=== PATIENT | female | born 1995 | race Caucasian/White ===

== ENCOUNTER 2023-07-29 11:27 | Observation (INO) | payer MEDICAID | END 2023-07-29 14:09 | disposition home or self-care (01) | LOC: LDRP 11:27 | PROVIDERS: ADMIT Obstetrics & Gynecology; ATTEND Obstetrics & Gynecology | DX: O26.893 Other specified pregnancy related conditions, third trimester (principal); R10.2 Pelvic and perineal pain; Z88.0 Allergy status to penicillin; Z3A.22 22 weeks gestation of pregnancy | CPT/HCPCS: 59025; 76805; 81002; 94760; G0378 ==

== ENCOUNTER 2023-10-08 11:30 | Observation (INO) | payer MEDICAID ==
[2023-10-08] MEDS ORDERED: PREN1TAB71 OR (11:46)
== END 2023-10-08 14:10 | disposition home or self-care (01) ==
LOC: LDRP 11:30 → UNDOADMOB 11:30 → LDRP 11:42
PROVIDERS: ADMIT Obstetrics & Gynecology; ATTEND Obstetrics & Gynecology
DX: O24.419 Gestational diabetes mellitus in pregnancy, unspecified control (principal); Z3A.32 32 weeks gestation of pregnancy; Z79.84 Long term (current) use of oral hypoglycemic drugs; Z88.0 Allergy status to penicillin
CPT/HCPCS: 59025; 76818; 81002; 82962; 94760; G0378

== ENCOUNTER 2023-10-11 07:25 | Observation (INO) | payer MEDICAID ==
[~2023-10-11 07:25] MED LIST: PREN1TAB71 OR
== END 2023-10-11 10:40 | disposition home or self-care (01) ==
LOC: UNDOADMOB 09:00 → LDRP 09:00
PROVIDERS: ADMIT Obstetrics & Gynecology; ATTEND Obstetrics & Gynecology
DX: O24.419 Gestational diabetes mellitus in pregnancy, unspecified control (principal); O26.893 Other specified pregnancy related conditions, third trimester; R10.30 Lower abdominal pain, unspecified; Z3A.33 33 weeks gestation of pregnancy; Z88.0 Allergy status to penicillin
CPT/HCPCS: 59025; 76818; 81002; 82948; 94760; G0378

== ENCOUNTER 2023-10-15 09:00 | Observation (INO) | payer MEDICAID | END 2023-10-15 10:34 | disposition home or self-care (01) | LOC: UNDOADMOB 09:00 → LDRP 09:00 → UNDODISOB 10:34 | PROVIDERS: ADMIT Obstetrics & Gynecology; ATTEND Obstetrics & Gynecology | DX: O24.419 Gestational diabetes mellitus in pregnancy, unspecified control (principal); O99.283 Endocrine, nutritional and metabolic diseases complicating pregnancy, third trimester; E16.2 Hypoglycemia, unspecified; Z3A.33 33 weeks gestation of pregnancy; Z88.0 Allergy status to penicillin; Z79.84 Long term (current) use of oral hypoglycemic drugs | CPT/HCPCS: 59025; 76818; 81002; 82948; 82962; 94760; G0378 ==

== ENCOUNTER 2023-10-17 14:09 | Observation (INO) | payer MEDICAID ==
[2023-10-17] MEDS ORDERED: METF-929 PO (16:10)
== END 2023-10-17 16:22 | disposition home or self-care (01) ==
LOC: LDRP 14:09 → UNDOADMOB 14:09 → LDRP 14:24
PROVIDERS: ADMIT Obstetrics & Gynecology; ATTEND Obstetrics & Gynecology
DX: O24.419 Gestational diabetes mellitus in pregnancy, unspecified control (principal); O26.893 Other specified pregnancy related conditions, third trimester; R10.30 Lower abdominal pain, unspecified; R10.2 Pelvic and perineal pain; Z3A.34 34 weeks gestation of pregnancy; Z88.0 Allergy status to penicillin
CPT/HCPCS: 59025; 76818; 81002; 82962; G0378

== ENCOUNTER 2023-10-22 09:11 | Observation (INO) | payer MEDICAID ==
[~2023-10-22 09:11] MED LIST changes: +METF-929 PO
[2023-10-22] MEDS ORDERED: METF500S3 PO (10:33)
[2023-10-22] MEDS ORDERED: GLYB2.5T8 PO (10:33)
== END 2023-10-22 10:48 | disposition home or self-care (01) ==
LOC: UNDOADMOB 09:11 → LDRP 09:11
PROVIDERS: ADMIT Obstetrics & Gynecology; ATTEND Obstetrics & Gynecology
DX: O24.419 Gestational diabetes mellitus in pregnancy, unspecified control (principal); Z3A.34 34 weeks gestation of pregnancy; Z79.899 Other long term (current) drug therapy; Z98.890 Other specified postprocedural states; Z88.0 Allergy status to penicillin
CPT/HCPCS: 59025; 76818; 81002; 82948; G0378

== ENCOUNTER 2023-10-25 11:00 | Observation (INO) | payer MEDICAID ==
[~2023-10-25 11:00] MED LIST changes: +GLYB2.5T8 PO; -METF-929 PO; +METF500S3 PO
== END 2023-10-25 12:41 | disposition home or self-care (01) ==
LOC: UNDOADMOB 11:00 → LDRP 11:00
PROVIDERS: ADMIT Obstetrics & Gynecology; ATTEND Obstetrics & Gynecology
DX: O24.419 Gestational diabetes mellitus in pregnancy, unspecified control (principal); Z3A.35 35 weeks gestation of pregnancy; Z88.0 Allergy status to penicillin
CPT/HCPCS: 59025; 76818; 81002; 82948; 82962; 94760; G0378

== ENCOUNTER 2023-10-29 11:09 | Observation (INO) | payer MEDICAID | END 2023-10-29 12:50 | disposition home or self-care (01) | LOC: LDRP 11:09 → UNDOADMOB 11:09 → LDRP 11:12 | PROVIDERS: ADMIT Obstetrics & Gynecology; ATTEND Obstetrics & Gynecology | DX: O24.419 Gestational diabetes mellitus in pregnancy, unspecified control (principal); O26.893 Other specified pregnancy related conditions, third trimester; N89.8 Other specified noninflammatory disorders of vagina; Z3A.36 36 weeks gestation of pregnancy; Z88.0 Allergy status to penicillin | CPT/HCPCS: 59025; 76818; 81002; 82948; 82962; G0378 ==

== ENCOUNTER 2023-11-01 10:52 | Observation (INO) | payer MEDICAID | END 2023-11-01 12:34 | disposition home or self-care (01) | LOC: UNDOADMOB 10:52 → LDRP 10:52 | PROVIDERS: ADMIT Obstetrics & Gynecology; ATTEND Obstetrics & Gynecology | DX: O24.419 Gestational diabetes mellitus in pregnancy, unspecified control (principal); Z3A.36 36 weeks gestation of pregnancy | CPT/HCPCS: 59025; 76818; 81002; 82948; 82962; G0378 ==

== ENCOUNTER → 2023-11-01 | Outpatient (CLI) | payer MEDICAID ==
[2023-11-01 10:43] LABS: Basophils # (auto) 0 10 ^3/uL (0-0.2); Basophils % (auto) 0.2 % (0.0-2.0); Eosinophils # (auto) 0.1 10 ^3/uL (0-0.8); Hematocrit 39.9 % (36.0-46.0); Hemoglobin 13.5 g/dL (12.2-16.2); Lymphocytes # (auto) 1.7 10 ^3/uL (0.4-5.4); Lymphocytes % (auto) 16.3 % (10.0-50.0); Mean Corpuscular Hemoglobin 31.6 pg (28.0-32.0); Mean Corpuscular Hgb Conc. 33.7 g/dL (32.0-36.0); Mean Corpuscular Volume 93.7 fL (80.0-100.0); Monocytes # (auto) 0.8 10 ^3/uL (0-1.3); Monocytes % (auto) 7.6 % (0.0-12.0); Neutrophils # (auto) 7.7 10 ^3/uL (1.6-8.6); Neutrophils % (auto) 74.9 % (37.0-80.0); Nucleated Red Blood Cells % 0.1 %; Red Blood Cells 4.26 10^6/uL (4.0-5.20); Red Cell Distribution Width 14.2 % (11.8-14.3); White Blood Cell 10.3 10^3/uL (4.4-10.8)
[2023-11-02 07:06] LABS: RPR Non Reactive (Non Reactive)
[2023-11-03 05:06] LABS: Chlamydia Trachomatis, NAA Negative (Negative); Neisseria gonorrhoeae, NAA Negative (Negative)
== END | disposition home or self-care (01) ==
LOC: LAB 10:05
PROVIDERS: ATTEND Obstetrics & Gynecology
DX: Z34.00 Encounter for supervision of normal first pregnancy, unspecified trimester (principal); Z72.51 High risk heterosexual behavior; Z3A.00 Weeks of gestation of pregnancy not specified
CPT/HCPCS: 36415; 85025; 86592

== ENCOUNTER 2023-11-05 09:12 | Observation (INO) | payer MEDICAID | END 2023-11-05 15:12 | disposition home or self-care (01) | LOC: UNDOADMOB 13:33 → LDRP 13:33 | PROVIDERS: ADMIT Obstetrics & Gynecology; ATTEND Obstetrics & Gynecology | DX: O24.419 Gestational diabetes mellitus in pregnancy, unspecified control (principal); Z3A.37 37 weeks gestation of pregnancy; Z88.0 Allergy status to penicillin | CPT/HCPCS: 59025; 76818; 81002; 82948; 82962; 94760; G0378 ==

== ENCOUNTER 2023-11-08 10:27 | Observation (INO) | payer MEDICAID | END 2023-11-08 12:04 | disposition home or self-care (01) | LOC: LDRP 10:27 → UNDOADMOB 10:27 → LDRP 10:44 | PROVIDERS: ADMIT Obstetrics & Gynecology; ATTEND Obstetrics & Gynecology | DX: O24.419 Gestational diabetes mellitus in pregnancy, unspecified control (principal); Z3A.37 37 weeks gestation of pregnancy; Z88.0 Allergy status to penicillin | CPT/HCPCS: 59025; 76818; 81002; 82962; G0378 ==

== ENCOUNTER 2023-11-12 10:15 | Observation (INO) | payer MEDICAID | END 2023-11-12 14:53 | disposition home or self-care (01) | LOC: UNDOADMOB 13:25 → LDRP 13:25 | PROVIDERS: ADMIT Obstetrics & Gynecology; ATTEND Obstetrics & Gynecology | DX: O24.419 Gestational diabetes mellitus in pregnancy, unspecified control (principal); Z3A.38 38 weeks gestation of pregnancy; Z88.0 Allergy status to penicillin | CPT/HCPCS: 59025; 76818; 81002; 82962; 94760; G0378 ==

== ENCOUNTER 2023-11-15 08:49 | Observation (INO) | payer MEDICAID | END 2023-11-15 13:03 | disposition home or self-care (01) | LOC: UNDOADMOB 08:49 → LDRP 08:49 → UNDODISOB 13:03 | PROVIDERS: ADMIT Obstetrics & Gynecology; ATTEND Obstetrics & Gynecology | DX: O24.419 Gestational diabetes mellitus in pregnancy, unspecified control (principal); O34.13 Maternal care for benign tumor of corpus uteri, third trimester; D25.9 Leiomyoma of uterus, unspecified; Z3A.38 38 weeks gestation of pregnancy | CPT/HCPCS: 59025; 76818; 81002; 82962; 94760; G0378 ==

== ENCOUNTER 2023-11-19 08:15 | Observation (INO) | payer MEDICAID | END 2023-11-19 11:14 | disposition home or self-care (01) | LOC: UNDOADMOB 09:51 → LDRP 09:51 → UNDODISOB 11:14 | PROVIDERS: ADMIT Obstetrics & Gynecology; ATTEND Obstetrics & Gynecology | DX: O24.419 Gestational diabetes mellitus in pregnancy, unspecified control (principal); O40.3XX0 Polyhydramnios, third trimester, not applicable or unspecified; Z3A.38 38 weeks gestation of pregnancy; Z88.0 Allergy status to penicillin | CPT/HCPCS: 59025; 76818; 81002; 82948; 94760; G0378 ==

== ENCOUNTER 2023-11-21 21:30 | Inpatient (IN) | payer MEDICAID ==
[~2023-11-21] VITALS: Ht 162.6 cm; Wt 91.6 kg
[2023-11-21] MEDS: ACCU-CHEK COMFORT CURVE STRIP VI SCH (01:30)
[2023-11-21] MEDS ORDERED: BUTORPHANOL TARTRATE 2 MG/1 ML VIAL IV PRN ×2 (21:45)
[2023-11-21] MEDS ORDERED: miSOPROStol 50 MCG per PRE-CUT 1/2 TAB PO PRN (21:45)
[2023-11-21 22:30] LABS: Basophils # (auto) 0 10 ^3/uL (0-0.2); Basophils % (auto) 0.2 % (0.0-2.0); Eosinophils # (auto) 0.1 10 ^3/uL (0-0.8); Eosinophils % (auto) 0.9 % (0.0-7.0); Hematocrit 40.2 % (36.0-46.0); Hemoglobin 13.7 g/dL (12.2-16.2); Lymphocytes % (auto) 21.8 % (10.0-50.0); Mean Corpuscular Hemoglobin 31.8 pg (28.0-32.0); Mean Corpuscular Hgb Conc. 33.9 g/dL (32.0-36.0); Mean Corpuscular Volume 93.6 fL (80.0-100.0); Monocytes # (auto) 0.7 10 ^3/uL (0-1.3); Monocytes % (auto) 7.2 % (0.0-12.0); Neutrophils # (auto) 6.3 10 ^3/uL (1.6-8.6); Neutrophils % (auto) 69.9 % (37.0-80.0); Red Cell Distribution Width 14.2 % (11.8-14.3); White Blood Cell 9.1 10^3/uL (4.4-10.8)
[2023-11-21 22:34] LABS: Urine Bacteria FEW /hpf (None Seen); Urine Blood Negative /uL (Negative); Urine Clarity Clear (Clear); Urine Color Colorless (Yellow); Urine Protein, UAD Negative (Negative); Urine Specific Gravity 1.006 (1.001-1.035); Urine Urobilinogen Normal (Negative); Urine WBC 4 /hpf (0 - 5); Urine pH 5.5 (5.0-9.0)
[2023-11-21 22:45] LABS: INR 0.97 (0.9-1.15); Partial Thromboplastin Time 25.9 SEC (24.5-34.5); Prothrombin Time 10.3 sec (9.3-11.8)
[2023-11-21 22:54] LABS: Amphetamine Screen, Urine Neg (NEGATIVE); Barbiturate Scree,Urine Neg (NEGATIVE); Benzodiazephine Screen, Urine Neg (NEGATIVE); Cocaine Screen, Urine Neg (NEGATIVE); Opiate Scree,Urine Neg (NEGATIVE)
[2023-11-21 22:56] LABS: Cannabinoid Screen, Urine Neg (NEGATIVE); Phencyclidine Screen, Urine Neg (NEGATIVE)
[2023-11-21 22:57] LABS: Alanine Aminotransferase 11 U/L (7-40); Albumin 4.1 g/dL (3.2-4.8); Alkaline Phosphatase 176 U/L (46-116); Anion Gap 8 (5-15); Aspartate Aminotransferase 13 U/L (13-40); BUN/Creatinine Ratio 16.4 (10.0-20.0); Blood Urea Nitrogen 9 mg/dL (9-23); Calcium 9.7 mg/dL (8.5-10.1); Carbon Dioxide 21 mmol/L (20-30); Chloride 109 mmol/L (98-107); Glucose 91 mg/dL (74-106); Potassium 3.9 mmol/L (3.5-5.1); Sodium 138 mmol/L (136-145)
[2023-11-21 22:58] LABS: Bilirubin, Total 1.1 mg/dL (0.2-1.0); Total Protein 6.7 g/dL (5.7-8.2)
[2023-11-21] MEDS: LACTATED RINGER'S 1,000 ML IV SCH (23:27)
[2023-11-22] MEDS ORDERED: TERBUTALINE SULFATE 1 MG/ML 1ML VIAL SC PRN (06:30)
[2023-11-22] MEDS: LACT. RINGERS/OXYTOCIN 20UNITS 1,000 ML IV SCH (06:57)
[2023-11-22] MEDS: ONDANSETRON HCL 4 MG/2 ML VIAL IV PRN (08:59)
[2023-11-22] MEDS: NALOXONE HCL 0.4 MG/ML VIAL IV ONE (10:45)
[2023-11-22] MEDS ORDERED: D5W/LACTATED RINGERS 1,000 ML IV SCH (14:00)
[2023-11-22] MEDS: LACTATED RINGER'S 1,000 ML IV ONE (14:34)
[2023-11-22] MEDS: ROPIVACAINE HCL 200 ML ONE (14:36)
[2023-11-22] MEDS: fentaNYL CITRATE 100 MCG/2 ML VL IV ONE (14:38)
[2023-11-22] MEDS: PHISODERM TOP SOLN 240ML BTL TOP PRN (19:42)
[2023-11-22] MEDS: WITCH HAZEL-GLYCERIN PAD TOP PRN (19:42)
[2023-11-22] MEDS: DERMOPLAST 60ML BOTTLE TOP PRN (19:43)
[2023-11-22] MEDS: METHYLERGONOVINE MALEATE 0.2 MG/ML AMP IM ONE (21:00)
[2023-11-22] MEDS ORDERED: CARBOPROST TROMETHAMINE 250 MCG/1ML VIAL IM PRN (21:00)
[2023-11-22] MEDS ORDERED: miSOPROStol 100 mcg TAB PR PRN (21:00)
[2023-11-22] MEDS ORDERED: miSOPROStol 100 mcg TAB SL PRN (21:00)
[2023-11-22] MEDS: LACT. RINGERS/OXYTOCIN 20UNITS 500 ML IV ONE ×2 (21:34→22:09)
[2023-11-22] MEDS ORDERED: ACETAMINOPHEN 325 MG TAB PO PRN (22:00)
[2023-11-22] MEDS ORDERED: DIPHENOXYLATE W/ATROPINE 2.5 MG TAB PO SCH (22:00)
[2023-11-22] MEDS: LIDOCAINE 2%HCL (LOCAL ANESTH.) INJ 20ML MDV IJ PRN (22:57)
[2023-11-23] VITALS (7 sets, daily range): BP systolic 107–113; BP diastolic 61–78; PULSE 83–95; RESP 16–18; TEMP 97.7–98.6; O2SAT 96–99
[2023-11-23] MEDS: IBUPROFEN 800 MG TAB PO PRN (00:23)
[2023-11-23] MEDS: ePHEDrine SULFATE 50 MG/ML AMP IV ONE (02:58)
[2023-11-23] MEDS: LIDOCAINE HCL 2 %PF INJ 10ML AMP IJ ONE (02:58)
[2023-11-23] MEDS: TERBUTALINE SULFATE 1 MG/ML 1ML VIAL SC ONE (02:58)
[2023-11-23] MEDS: DIPHENOXYLATE W/ATROPINE 2.5 MG TAB PO SCH (02:59)
[2023-11-23] MEDS: DOCUSATE SOD 100 MG CAP PO SCH (05:28)
[2023-11-23 09:06] LABS: RPR Non Reactive (Non Reactive)
[2023-11-23] MEDS ORDERED: ACCU-CHEK COMFORT CURVE STRIP VI SCH (10:00)
[2023-11-26 18:06] LABS: Treponema pallidum Ab (FTA-Ab) Non Reactive (Non Reactive)
== END 2023-11-23 22:51 | disposition home or self-care (01) | DRG 560 ==
LOC: LDRP 21:30
PROVIDERS: ADMIT Obstetrics & Gynecology; ATTEND Obstetrics & Gynecology
PROC: 10E0XZZ Delivery of Products of Conception, External Approach (ICD-10-PCS; principal; 2023-11-22)
PROC: 0KQM0ZZ Repair Perineum Muscle, Open Approach (ICD-10-PCS; 2023-11-22)
PROC: 3E0R3BZ Introduction of Anesthetic Agent into Spinal Canal, Percutaneous Approach (ICD-10-PCS; 2023-11-22)
PROC: 00HU33Z Insertion of Infusion Device into Spinal Canal, Percutaneous Approach (ICD-10-PCS; 2023-11-22)
DX: O24.425 Gestational diabetes mellitus in childbirth, controlled by oral hypoglycemic drugs (principal); Z37.0 Single live birth; O70.1 Second degree perineal laceration during delivery; Z3A.39 39 weeks gestation of pregnancy
CPT/HCPCS: 36415; 59025; 59409; 62282; 80053; 80307; 81001; 82948; 82962; 85025; 85610; 85730; 86592; 86850; 86900; 86901; 94760; 96360; 96361; 96365; 96366; 96374; 96375; G0378; J2405; J2590